=== PATIENT | female | born 1950 | race Two or more races ===

== ENCOUNTER 2018-03-08 21:30 | Inpatient (IN) | payer OTHER, MEDICAID ==
[~2018-03-08] VITALS: Ht 167.6 cm; Wt 108.4 kg
--- NOTE | 2018-03-08 21:30 | NUR ---
[facility]; FOR ABNORMAL HR; PT AOX0, NON-VERBAL, OBTUNDED, PT IS VENT DEPENDENT, ON MONITOR O2 SAT @100%, PT HAS NGT, PICCLINE ON R UPPER ARM; L HAND PIV 22G, PT HAS F/C, DRAINING CLEAR/YELLOW URINE, NO FOUL ODOR NOTED, PT TO BED 8, AWAITING MD STEELE
[2018-03-08 21:47] VITALS: BP 82/50
--- NOTE | 2018-03-08 21:54 | NUR ---
RT PATIENT ARRIVED TRACHED WITH A SHILEY 8 ON VENT, PLACED ON PREVIOUS SETTINGS FROM FACILITY, AC 14R 450VT 35%O2 +5 PEEP. VENT PLUGGED IN RED OUTLET, BRAKES LOCKED, ALARMS SET AND AUDIBLE, PATIENT AMBU BAG AND SPARE TRACH BY BEDSIDE, PATIENT SUCTIONED WITH SMALL THIN WHITE SECRETIONS, WILL CONTINUE TO MONITOR AND PATIENT TOLERATED CURRENT SETTINGS. Addendum: 03/08/18 at 2201 by LAURA TEAGUE RT Amended: Links added.
[2018-03-08 22:00] LABS: BASOPHILS % (AUTO) 0.3 % (0.0-2.0); HEMATOCRIT 22 % (33-45); HEMOGLOBIN 7.2 g/dL (11.5-14.8); LYMPHOCYTES # (AUTO) 0.9 /CMM (0.8-4.8); LYMPHOCYTES % (AUTO) 9.2 % (20.0-44.0); MEAN CORPUSCULAR HGB CONC 33 g/dl (31.0-36.0); MEAN CORPUSCULAR VOLUME 94 fL (82-100); MONOCYTES # (AUTO) 0.9 /CMM (0.1-1.30); MONOCYTES % (AUTO) 9.6 % (2.0-12.0); NEUTROPHILS # (AUTO) 7.3 /CMM (1.8-8.9); NEUTROPHILS % (AUTO) 77.9 % (43.0-81.0); PLATELET COUNT (AUTO) 157 /CMM (150-450); RED BLOOD CELL COUNT(AUTO) 2.34 MIL/uL (4.0-5.2); WHITE BLOOD COUNT (AUTO) 9.3 K/uL (4.3-11.0)
[2018-03-08] MEDS ORDERED: IV NS 0.9% 1,000 ML BAG IV ONE (22:00)
[2018-03-08 22:27] LABS: ALBUMIN 2.6 g/dL (3.4-5.0); BILIRUBIN,DIRECT 0.2 mg/dL (0.0-0.2); BILIRUBIN,TOTAL 0.6 mg/dL (0.2-1.0); CALCIUM, SERUM 7.6 mg/dL (8.5-10.1); POTASSIUM 3.3 mmol/L (3.5-5.1); TOTAL PROTEIN, SERUM 5.4 g/dL (6.4-8.2)
[2018-03-08 22:29] LABS: CREATININE 8.7 mg/dL (0.6-1.3)
[2018-03-08] MEDS ORDERED: NOREPINEPHRINE 8 MG in IV D5W 500 ML IV PRN (22:30)
[2018-03-08] MEDS ORDERED: NOREPINEPHRINE 4 MG/4 ML AMPUL IV ONE (22:33)
--- NOTE | 2018-03-08 22:47 | NUR ---
PT REMAINS TO BE HYPOTENSIVE, PER MD ORDERS; TO START LEVOPHED 8MG TO TITRATE PER ORDERS. STARTED ON 2MCG/MIN
--- NOTE | 2018-03-08 23:03 | NUR ---
CALLED [facility] FOR THIS PATIENT
[2018-03-08] MEDS ORDERED: PIPERACILLIN /TAZOBACTAM 2.25 G VIAL IV ONE (23:25)
--- NOTE | 2018-03-08 23:26 | NUR ---
PER MD ORDER, TO GIVE ZOSYN 2.25 IVPB, ATB NOT AVAILABLE IN ER [facility], MIS MADE AWARE, WILL CONTACT INPATIENT FLOOR FOR ATB. MD DR BLAKELY MADE AWARE
[2018-03-08] MEDS ORDERED: VANCOMYCIN 1 GM in IV D5W 250 ML IV ONE (23:30)
[2018-03-08] MEDS ORDERED: PIPERACILLIN /TAZOBACTAM 2.25 G in IV D5W 50 ML IV ONE (23:30)
[2018-03-08 23:40] VITALS: BP 126/64
--- NOTE | 2018-03-08 23:47 | NUR ---
ICU BED 252 DX ENCEPHALOPATHY, SEPSIS, A-FIB
[2018-03-08] MEDS ORDERED: VANCOMYCIN 1 GM VIAL ONE (23:58)
[2018-03-09] VITALS (32 sets, daily range): BP systolic 42–125; BP diastolic 29–76
--- NOTE | 2018-03-09 00:06 | NUR ---
REPORT GIVEN TO ROSE ALLEN FOR [facility]
--- NOTE | 2018-03-09 00:21 | NUR ---
REPORT GIVEN TO SUDHA ROSE ICU FOR [facility].
[2018-03-09] MEDS ORDERED: CARV25TA NG (00:35)
[2018-03-09] MEDS ORDERED: ALLO100T NG (00:35)
[2018-03-09] MEDS ORDERED: CALC0.253 NG (00:35)
[2018-03-09] MEDS ORDERED: LEVE500T9 NG (00:35)
[2018-03-09] MEDS ORDERED: PANT40SU2 NG (00:35)
[2018-03-09] MEDS ORDERED: HYDR-4076 NG (00:35)
[2018-03-09] MEDS ORDERED: INSU100V7 SQ (00:35)
[2018-03-09] MEDS ORDERED: CHOL200026 NG (00:35)
[2018-03-09] MEDS ORDERED: DEXT15DR6 EACHEYE (00:35)
[2018-03-09] MEDS ORDERED: INSU100V3 SQ (00:35)
[2018-03-09] MEDS ORDERED: NUTR100037 GT (00:35)
[2018-03-09] MEDS ORDERED: EPOE40002 SQ (00:35)
[2018-03-09] MEDS ORDERED: NPH.100V2 SQ (00:35)
[2018-03-09] MEDS ORDERED: Potassium Chloride 20 MEQ in IV D5/ 0.9% NACL 1,000 ML IV PRN (01:00)
[2018-03-09] MEDS ORDERED: AMIODARONE 900 MG in IV D5W 482 ML IV PRN (01:00)
[2018-03-09] MEDS ORDERED: LEVALBUTEROL HCL NEB 1.25 MG/0.5 ML VIAL.NEB NEB PRN (01:00)
[2018-03-09] MEDS ORDERED: LEVETIRACETAM (500MG) 500 MG in IV NS 0.9% 100 ML IV SCH (01:00)
[2018-03-09] MEDS ORDERED: MORPHINE SULFATE INJ 2 MG/ML DISP.SYRIN IV PRN (01:00)
[2018-03-09] MEDS ORDERED: ACETAMINOPHEN 650 MG/SUPP.RECT RC PRN (01:00)
[2018-03-09] MEDS ORDERED: PHENYLEPHRINE 20 MG in IV D5W 250 ML IV PRN (01:00)
--- NOTE | 2018-03-09 01:03 | NUR ---
RT PATIENT TRANSFERRED TO ICU, NO ADVERSE REACTIONS. WILL CONTINUE TO MONITOR. Addendum: 03/09/18 at 0104 by LAURA TEAGUE RT Amended: Links added.
--- NOTE | 2018-03-09 01:20 | NUR ---
MANAGER PEDIATRIC NOTE PT TRANSFERRED TO ROOM 252 SAFELY. OPENS EYES SPONTANEOUSLY AND NONVERBAL. ON MECH VENT WITH SETTINGS WELL TOLERATED AND SATURATING 100%. BREATHING UNLABORED. TELE-AFIB UNCONTROLLED 120'S.HOB ELEVATED AND ON ASPIRATION PRECAUTIONS. L NARE NGT PATENT AND WITH POSITIVE PLACEMENT. JESSE PICC DOUBLE LUMEN WITH LEVO INFUSING @8MCG/KG/MIN. JOSUE CATHETER IN PLACE AND DRAINING BY GRAVITY. FAMILY AT BEDSIDE. WILL CONTINUE TO MONITOR.
[2018-03-09] MEDS ORDERED: VANCOMYCIN 1 GM VIAL ONE (01:27)
[2018-03-09] MEDS ORDERED: VANCOMYCIN 1 GM in IV NS 0.9% 250 ML IV ONE (01:30)
[2018-03-09] MEDS ORDERED: LEVETIRACETAM (500MG) 500 MG/5 ML VIAL IV ONE (01:33)
[2018-03-09] MEDS ORDERED: HEPARIN INFUSION/D5W 500 ML IV PRN (02:00)
[2018-03-09] MEDS ORDERED: AMIODARONE 150 MG/3 ML VIAL IV ONE (02:01)
[2018-03-09] MEDS ORDERED: PHENYLEPHRINE 40 MG in IV D5W 250 ML IV PRN (02:30)
[2018-03-09] MEDS ORDERED: PHENYLEPHRINE 10 MG/ML VIAL ONE (02:54)
[2018-03-09] MEDS ORDERED: POTASSIUM CL. PREMIX PERIPHER. 50 ML ONE (03:18)
[2018-03-09] MEDS ORDERED: POTASSIUM CHLORIDE 10 MEQ/50 ML PREMIXED IVPB FOR PERIPHERAL LINE IV ONE ×2 (03:30)
[2018-03-09 04:19] LABS: BASOPHILS % (AUTO) 0.3 % (0.0-2.0); EOSINOPHILS % (AUTO) 3.4 % (0.0-6.0); HEMATOCRIT 22 % (33-45); HEMOGLOBIN 7.3 g/dL (11.5-14.8); LYMPHOCYTES # (AUTO) 0.8 /CMM (0.8-4.8); LYMPHOCYTES % (AUTO) 8.4 % (20.0-44.0); MEAN CORPUSCULAR HGB CONC 33 g/dl (31.0-36.0); MEAN CORPUSCULAR VOLUME 93 fL (82-100); MONOCYTES # (AUTO) 0.6 /CMM (0.1-1.30); MONOCYTES % (AUTO) 7.1 % (2.0-12.0); NEUTROPHILS # (AUTO) 7.3 /CMM (1.8-8.9); NEUTROPHILS % (AUTO) 80.8 % (43.0-81.0); PLATELET COUNT (AUTO) 167 /CMM (150-450); RED BLOOD CELL COUNT(AUTO) 2.39 MIL/uL (4.0-5.2)
[2018-03-09 04:41] LABS: ALANINE AMINOTRANSFERASE 13 U/L (12-78); ALBUMIN 2.6 g/dL (3.4-5.0); ALKALINE PHOSPHATASE 375 U/L (46-116); ASPARTATE AMINOTRANSFERASE 33 U/L (15-37); BILIRUBIN,TOTAL 0.7 mg/dL (0.2-1.0); CALCIUM, SERUM 8.5 mg/dL (8.5-10.1); CARBON DIOXIDE 27 mmol/L (21-32); CHLORIDE 86 mmol/L (98-107); GLUCOSE 133 mg/dL (74-106); MAGNESIUM 1.8 mg/dL (1.8-2.4); PHOSPHORUS 5.7 mg/dL (2.5-4.9); POTASSIUM 3.2 mmol/L (3.5-5.1); SODIUM SERUM 126 mmol/L (136-145); TOTAL PROTEIN, SERUM 5.3 g/dL (6.4-8.2)
[2018-03-09 04:45] LABS: HDL CHOLESTEROL 13 mg/dL (40-60); LDL 17 mg/dL (0-99); THYROID STIMULATING HORMONE 7.718 uIU/mL (0.358-3.74); TRIGLYCERIDES 38 mg/dL (30-150)
[2018-03-09 05:18] LABS: CHOLESTEROL < 50 mg/dL (<200)
[2018-03-09 05:20] LABS: CREATININE 8.5 mg/dL (0.6-1.3); UREA NITROGEN, BLOOD 185 mg/dL (7-18)
--- NOTE | 2018-03-09 05:20 | NUR ---
THERAPIST ATTENDED CPR, PT PULSE RETURNED AND PLACED BACK ON VENT Addendum: 03/09/18 at 0558 by ELSIE ZAFAR RT Amended: Links added.
[2018-03-09] MEDS ORDERED: NOREPINEPHRINE 4 MG/4 ML AMPUL IV ONE (05:28)
[2018-03-09] MEDS ORDERED: NOREPINEPHRINE 8 MG in IV D5W 500 ML IV PRN (05:30)
--- NOTE | 2018-03-09 05:30 | NUR ---
RN PROGRESSIVE CARE NOTE PT NOTED SHANNA TO [facility] AND CODE BLUE INITIATED. REFER TP CODE BLUE SHEET.
[2018-03-09 05:43] LABS: B-TYPE NATRIURETIC PEPTIDE 38711 PG/ML (0-125)
[2018-03-09] MEDS ORDERED: PIPERACILLIN /TAZOBACTAM 2.25 G in IV D5W 50 ML IV SCH (06:00)
--- NOTE | 2018-03-09 06:35 | NUR ---
TUB WASH OPERATOR NOTE FAMILY AT BEDSIDE REQUESTING TO CHANGE CODE STATUS TO DNR. FAMILY DOES NOT WANT ANY FURTHER TREATMENT OR CARE. COMPANION DR CRAMER NOTIFIED OF FAMILY'S REQUEST FOR DNR STATUS. ORDERS NOTED AND CARRIED OUT.
--- NOTE | 2018-03-09 07:15 | NUR ---
PATIENT NOTED ASYSTOLE ON MONITOR. PUPILS FIXED AND DILATED. NO SPONTANEOUS BREATHING. NO HEART TONE AUSCULTATED. NO PALPABLE PULSES. FAMILY AT BEDSIDE. FAMILY HAD REQUESTED TERMINAL EXTUBATION . DNR STATUS. PRONOUNCED AT 0715.
[2018-03-09] MEDS ORDERED: DC PROPOFOL WHEN EXTUBATED XX PRN (07:30)
--- NOTE | 2018-03-09 07:30 | NUR ---
CALLED [facility] AND SPOKE WITH JULIO CÉSAR # [id number]
--- NOTE | 2018-03-09 07:45 | NUR ---
ATTEMPTED TO CONTACT BELA TO NOTIFY OF . UNABLE TO REACH. CALLING [facility] TO NOTIFY.
--- NOTE | 2018-03-09 08:00 | NUR ---
SPOKE WITH PILING SETTER JENNIFER. PER RODRIGUEZ THIS IS NOT A CORONERS CASE
[2018-03-09] MEDS ORDERED: EPINEPHRINE (1:10,000) SYRINGE 1 MG/10 ML DISP.SYRIN IVP ONE (08:15)
--- NOTE | 2018-03-09 08:20 | NUR ---
SPOKE TO DR. SPRINGER. PER -DR. BELA FABIAN WILL SIGN THE CERTIFICATE.
[2018-03-09] MEDS ORDERED: PANTOPRAZOLE 40 MG VIAL IV SCH (09:00)
--- NOTE | 2018-03-09 11:11 | NUR ---
MORTUARY HERE TO ANIMAL ASSISTANT PATIENT. PATIENT YEISON SIGNED RELEASE OF PATIENT.
== END 2018-03-09 11:11 | disposition expired | DRG 871 ==
LOC: ER 21:35 → ICU 03-09 00:28
PROVIDERS: ADMIT Internal Medicine; ATTEND Internal Medicine
PROC: 5A1935Z Respiratory Ventilation, Less than 24 Consecutive Hours (ICD-10-PCS; principal; 2018-03-09)
PROC: 5A12012 Performance of Cardiac Output, Single, Manual (ICD-10-PCS; 2018-03-09)
DX: A41.9 Sepsis, unspecified organism (principal); E43 Unspecified severe protein-calorie malnutrition; J69.0 Pneumonitis due to inhalation of food and vomit; G92 Toxic encephalopathy; N18.6 End stage renal disease; E87.1 Hypo-osmolality and hyponatremia; J96.10 Chronic respiratory failure, unspecified whether with hypoxia or hypercapnia; I13.2 Hypertensive heart and chronic kidney disease with heart failure and with stage 5 chronic kidney disease, or end stage renal disease; D68.59 Other primary thrombophilia; Z99.11 Dependence on respirator [ventilator] status; L03.113 Cellulitis of right upper limb; I24.9 Acute ischemic heart disease, unspecified; E87.6 Hypokalemia; Z86.73 Personal history of transient ischemic attack (TIA), and cerebral infarction without residual deficits; D64.9 Anemia, unspecified; E11.22 Type 2 diabetes mellitus with diabetic chronic kidney disease; I48.91 Unspecified atrial fibrillation; I50.9 Heart failure, unspecified; Z90.710 Acquired absence of both cervix and uterus; Z93.0 Tracheostomy status; K64.9 Unspecified hemorrhoids; E66.01 Morbid (severe) obesity due to excess calories; Z79.4 Long term (current) use of insulin; L98.8 Other specified disorders of the skin and subcutaneous tissue; R23.3 Spontaneous ecchymoses; G40.909 Epilepsy, unspecified, not intractable, without status epilepticus; R13.10 Dysphagia, unspecified; M19.90 Unspecified osteoarthritis, unspecified site; G89.29 Other chronic pain; Z68.38 Body mass index [BMI] 38.0-38.9, adult; I95.9 Hypotension, unspecified; Z66 Do not resuscitate
CPT/HCPCS: 31720; 36415; 71045-TC; 80048-TC; 80053-TC; 80061-TC; 80076-TC; 82962-TC; 83605-TC; 83735-TC; 83880; 84100-TC; 84443-TC; 84484-TC; 85025-TC; 85730-TC; 87040-TC; 87081-TC; 94002-TC; 94003-TC; 99082-TC; G0378; J0171; J0282; J1644; J1953; J2370; J2543; J3370; J3480; J7030; J7042; J7050; J7060